=== PATIENT | male | born 1970 | race African-American/Black ===

== ENCOUNTER 2019-05-07 12:15 | Emergency (ER) | payer SELFPAY ==
[~2019-05-07] VITALS: Ht 177.8 cm; Wt 75.0 kg
[~2019-05-07 12:15] MED LIST: AMLO10TA4 PO; CLON0.1T PO; KEPP500 PO; LABE100T6; LISI20TA; RISP05
[2019-05-07] MEDS ORDERED: SODIUM CHLORIDE 0.9% 1,000 ML IV ONE (12:45)
[2019-05-07] MEDS ORDERED: LEVETIRACETAM 1000MG/100ML 100 ML IV ONE (12:45)
[2019-05-07 14:20] VITALS: BP 158/80
== END 2019-05-07 14:21 | disposition home or self-care (01) ==
LOC: ER 12:15
DX: G40.909 Epilepsy, unspecified, not intractable, without status epilepticus (principal); I10 Essential (primary) hypertension; Z79.899 Other long term (current) drug therapy; Z91.14 Patient's other noncompliance with medication regimen
CPT/HCPCS: 96365; 99283; J1953; J7030